=== PATIENT | female | born 2000 | race Hispanic/Latino ===

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

== ENCOUNTER 2022-05-04 18:01 | Emergency (ER) | payer OTHER ==
--- NOTE | 2022-05-04 19:21 | EDPHYS ---
Physician Documentation [facility] Name: Lisette Dodson Age: 21 yrs Sex: Female : 2000 Arrival Date: 05/04/2022 Time: 18:03 Bed 11 Private MD: CAITLYN Physician Valentin Ellis HPI: 05/05 00:46 This 21 yrs old Female presents to ER via Ambulatory with complaints of Rash. kb 00:46 The patient's rash thought to be caused by an unknown cause. The rash is located on the kb right lower quadrant and left bicep. The rash can be described as erythematous. Onset: The symptoms/episode began/occurred today. Associated signs and symptoms: Pertinent positives: None. Severity of symptoms: At their worst the symptoms were mild in the emergency department the symptoms have improved. The patient has not experienced similar symptoms in the past. The patient has not recently seen a physician. Patient states she noticed a rash on her left upper arm and right lower quadrant today. States she thought she saw some bumps on her hands as well. Concerned about monkey pox. Denies any recent illness, fever, body aches. Has 1 small area on left bicep and right lower quadrant.. 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 - Social history:: Smoking status: Patient denies any tobacco usage or history of. ROS: 05/05 00:45 Constitutional: Negative for fever, chills, and weight loss. kb Skin: Positive for rash. All other systems are negative. Exam: 00:45 Constitutional: This is a well developed, well nourished patient who is awake, alert, kb and in no acute distress. Head/Face: Normocephalic, atraumatic. ENT: Moist Mucous membranes Cardiovascular: Regular rate and rhythm with a normal S1 and S2. No gallops, murmurs, or rubs. No pulse deficits. Respiratory: Respirations even and unlabored. No increased work of breathing. Talking in full sentences MS/ Extremity: Pulses equal, no cyanosis. Neurovascular intact. Full, normal range of motion. Neuro: Awake and alert, GCS 15, oriented to person, place, time, and situation. Moves all extremities. Normal gait. Psych: Awake, alert, with orientation to person, place and time. Behavior, mood, and affect are within normal limits. 00:45 Skin: rash a mild rash is noted, rash can be described as erythematous, on the right lower quadrant and left bicep, similar to insect bite. Vital Signs: 05/04 18:16 BP 128 / 87; Pulse 90; Resp 17; Temp 99.1(TE); Pulse Ox 100% on R/A; tw2 18:22 Weight 79.83 kg (R); Height 5 ft. 5 in. (165.10 cm); tw2 18:22 Body Mass Index 29.29 (79.83 kg, 165.10 cm) tw2 MDM: 19:15 Patient medically screened. kb 05/05 00:45 Data reviewed: vital signs, nurses notes. Data interpreted: Pulse oximetry: on room air kb is 100 %. Interpretation: normal. Counseling: I had a detailed discussion with the patient and/or guardian regarding: the historical points, exam findings, and any diagnostic results supporting the discharge/admit diagnosis, the need for outpatient follow up, a family practitioner, to return to the emergency department if symptoms worsen or persist or if there are any questions or concerns that arise at home. Administered Medications: No medications were administered Disposition Summary: 05/04/22 19:21 Discharge Ordered Location: Home kb Condition: Stable kb Diagnosis - Rash and other nonspecific skin eruption kb Followup: kb - With: Emergency Department - When: As needed - Reason: Worsening of condition Followup: kb - With: Private Physician - When: 2 - 3 days - Reason: Recheck today's complaints, Continuance of care, Re-evaluation by your physician Discharge Instructions: - Discharge Summary Sheet kb - Rash, Adult, [id number] kb Forms: - Medication Reconciliation Form kb - Thank You Letter kb - Antibiotic Education kb - Prescription Opioid Use kb Signatures: Joi Martinez, FREDC WESLEY-Carmen Munoz RN RN tw2
--- NOTE | 2022-05-04 19:21 | ER ---
Nurse's Notes [facility] Name: Lisette Dodson Age: 21 yrs Sex: Female : 2000 Arrival Date: 05/04/2022 Time: 18:03 Bed 11 Private MD: Diagnosis: Rash and other nonspecific skin eruption Presentation: 05/04 18:16 Chief complaint: Patient states: earlier today after i came back from the gym. i saw a tw2 bump on the right side of my stomach. then the next thing i know one popped up on my left arm. and they are popping up on my hands. i got a rash on my finger. the redness has gone down. there is no puss. Coronavirus screen: At this time, the client does not indicate any symptoms associated with coronavirus-19. Ebola Screen: Patient denies travel to an Ebola-affected area in the 21 days before illness onset. Initial Sepsis Screen: Does the patient meet any 2 criteria? No. Patient's initial sepsis screen is negative. Does the patient have a suspected source of infection? No. Patient's initial sepsis screen is negative. Risk Assessment: Do you want to hurt yourself or someone else? Patient reports no desire to harm self or others. Onset of symptoms was May 04, 2022. 18:16 Method Of Arrival: Ambulatory tw2 18:16 Acuity: DEMETRIS 4 tw2 Triage Assessment: 18:22 General: Appears in no apparent distress. Behavior is anxious. Pain: Denies pain. Derm: tw2 small red raised bump noted on stomach right side and upper left arm. 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 - Social history:: Smoking status: Patient denies any tobacco usage or history of. 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 bb Vital Signs: 18:16 BP 128 / 87; Pulse 90; Resp 17; Temp 99.1(TE); Pulse Ox 100% on R/A; tw2 18:22 Weight 79.83 kg (R); Height 5 ft. 5 in. (165.10 cm); tw2 18:22 Body Mass Index 29.29 (79.83 kg, 165.10 cm) tw2 ED Course: 18:03 Patient arrived in ED. rg4 18:10 Joi Martinez FNP-C is [facility]. kb 18:10 Valentin Ellis MD is Attending Physician. kb 18:18 Triage completed. tw2 18:21 Arm band placed on. tw2 Administered Medications: No medications were administered Outcome: 19:21 Discharge ordered by . kb 19:25 Patient left the ED. bb Signatures: Joi Martinez FNP-C FNP-Ckb Ballard, Brenda RN RN bb Carmen Yusuf RN RN tw2 Farzana Horne rg4
[2022-05-04 19:52] VITALS: BP 128/87; TEMP 99.1; O2SAT 100
== END 2022-05-04 19:25 | disposition home or self-care (01) ==
LOC: ER 18:01
DX: R21 Rash and other nonspecific skin eruption (principal)